=== PATIENT | male | born 1965 | race Caucasian/White ===

== ENCOUNTER 2024-09-20 15:23 | Oncology outpatient (recurring) (ONCR) | payer BC, MEDICAID, SELFPAY | END 2024-10-06 23:59 | disposition home or self-care (01) | PROVIDERS: PCP Family Medicine; Visit Provider Internal Medicine Medical Oncology | DX: C18.7 Malignant neoplasm of sigmoid colon (principal) | CPT/HCPCS: 36415 ==

== ENCOUNTER 2024-09-21 09:30 | Outpatient (CLI) | payer BC, MEDICAID, SELFPAY ==
--- NOTE | 2024-09-21 10:20 | PETR_ITS ---
PROCEDURE INFORMATION: Exam: PET/CT Skull Base to Mid-thigh Exam date and time: 09/21/2024 10:35 AM Age: 58 years old Clinical indication: Condition or disease; Primary cancer: Malignant neoplasm of colon; Prior surgery; Surgery date: <1 month; Surgery type: Colon resection; Additional info: Malignant neoplasm of colon, unspecified. LABS AND CLINICAL REPORTS: Glucose: 111 mg/dl Treatment strategy for malignancy (PET staging): Initial Staging (PI) TECHNIQUE: Imaging protocol: Following at least four-hour fasting and following the injection of radiopharmaceutical, low dose CT images were obtained. Then, PET images were obtained. Attenuation corrected images were constructed using the CT scan. Fused images of PET and CT were reviewed. The standardized uptake values (SUV) reported below are maximum values within a region of interest, expressed in gm/ml. Exam includes orbital meatal line to mid-thigh. SUV normalization method: BodyWeight Radiopharmaceutical: 11.24 mCi F-18 FDG (Fluorodeoxyglucose), IV. Time of imaging post radiopharmaceutical administration: 47 minutes Injection site: left wrist COMPARISON: No relevant prior studies available. FINDINGS: Brain: Visualized brain has normal physiologic uptake. Pharynx: No abnormal uptake. Larynx: No abnormal uptake. Lungs, pleura and trachea: No abnormal uptake. Left lower lobe calcified granuloma. Heart: Normal physiologic uptake. Mediastinal space: No abnormal uptake. Liver: Subtle focal FDG uptake at the right lobe greater than background without discrete underlying CT abnormality showing SUV max 3.4 on axial image 163. Gallbladder and biliary ducts: No abnormal uptake. Pancreas: No abnormal uptake. Spleen: No abnormal uptake. Adrenal glands: No abnormal uptake. Kidneys and ureters: Normal physiologic uptake. Stomach and bowel: Sigmoid colon resection with mild thickening and FDG uptake at the anastomosis showing SUV max 5.7. More distal uptake at the rectum without underlying CT abnormality shows SUV max 7.9 on axial image 264. Intraperitoneal and retroperitoneal spaces: Mild left abdominal mesenteric fat stranding with subtle omental hazy attenuation. No free air or significant fluid collection. Reproductive: Prostatomegaly measures 5.2 cm in transverse dimension. No suspicious abnormal uptake. Vasculature: No abnormal uptake. Mild systemic atherosclerotic calcification without aortic aneurysm. Lymph nodes: No abnormal uptake. No lymphadenopathy in the head, neck, chest, abdomen, pelvis, and extremities. Calcified left hilar nodes in keeping with sequela of old granulomatous disease. Skeleton: Degenerative changes along the spine, acromioclavicular and sacroiliac joints. Soft tissues: Ventral lower abdominal wall postsurgical stranding and low-level FDG uptake. Mild uptake adjacent to bilateral greater trochanters without underlying CT abnormality is likely inflammatory. FDG uptake at the posterior left shoulder musculature without underlying CT abnormality is likely physiologic activation or strain. METRICS: Mediastinal blood pool: SUV mean 1.9 Liver uptake: SUV mean 2.6 PET/PET skull to thigh INIT [id number] IMPRESSION: 1. Sigmoid colon resection with mild thickening and FDG uptake at the anastomosis as well as more distal rectal uptake. Findings may represent postsurgical inflammatory change, residual malignancy not excluded. 2. Mild left abdominal mesenteric fat stranding with subtle omental hazy attenuation. Findings may represent postsurgical change, neoplastic involvement difficult to entirely exclude although no associated FDG uptake. 3. Subtle focal FDG uptake at the right hepatic lobe is nonspecific, cannot rule out small metastasis. Recommend liver MRI without and with contrast. 4. Additional chronic and incidental findings as above, to include atherosclerosis and prostatomegaly.
== END 2024-09-21 09:31 | disposition home or self-care (01) ==
PROVIDERS: PCP Family Medicine; Visit Provider Family Medicine
DX: C18.9 Malignant neoplasm of colon, unspecified (principal); Z98.890 Other specified postprocedural states; R93.89 Abnormal findings on diagnostic imaging of other specified body structures; J84.10 Pulmonary fibrosis, unspecified; N40.0 Benign prostatic hyperplasia without lower urinary tract symptoms; I70.0 Atherosclerosis of aorta; R59.0 Localized enlarged lymph nodes; M47.9 Spondylosis, unspecified; M19.012 Primary osteoarthritis, left shoulder; M19.011 Primary osteoarthritis, right shoulder; M46.1 Sacroiliitis, not elsewhere classified
CPT/HCPCS: 78815; A9552

== ENCOUNTER 2024-10-24 10:22 | Day surgery (SDC) | payer BC, MEDICAID, SELFPAY ==
--- NOTE | 2024-10-24 10:41 | SC_ITS ---
WS: [id number] C-arm fluoroscopy views of port insertion, 10/24/2024 Clinical Data: Port placement Comparison: None. Findings: Dr. Wiseman inserted the right infusion catheter ending in the superior vena cava. SC/C-arm FL for CVA [id number] Impression: Insertion right infusion catheter.
[2024-10-24 11:05] VITALS: BP 132/86; PULSE 68; RESP 18; TEMP 36.5; O2SAT 97
--- NOTE | 2024-10-24 11:18 | W.PM.OPSUD ---
Surgery/Procedure H&P Update DATE OF PROCEDURE: October 24, 2024 DATE H&P PERFORMED: 10/19/24 H&P UPDATE INFORMATION: I have reviewed H&P completed within last 30 days, I have examined patient prior to procedure and No changes to prior documentation PLANNED PROCEDURE: Operation Date: 10/24/24 12:25 Proposed Procedures p Portacath Placement(Not Applicable) - Dylon Wiseman MD
--- NOTE | 2024-10-24 11:23 | ANES.PREANE2 ---
Pre-Anesthetic Assessment Height/Weight: Height 6 ft Temp Pulse Resp BP Pulse Ox O2 Del Method 97.7 F 68 18 132/86 97 Room Air 10/24/24 11:05 10/24/24 11:05 10/24/24 11:05 10/24/24 11:05 10/24/24 11:05 10/24/24 11:12 Preop Diagnosis: Colon cancer Operation Date: 10/24/24 12:25 Proposed Procedures p Portacath Placement(Not Applicable) - Dylon Wiseman MD Was Beta Taylor taken within 24 hours: N/A Was Clonidine taken within 24 hours: N/A Last intake: Intake Last Liquid Date 10/23/24 Last Liquid Time 17:00 Last Solid Date 10/23/24 Last Solid Time 19:00 Social Tobacco and No alcohol Exam alert, oriented x 3 and regular rate & rhythm Airway Submandibular: within normal limits Mallampati: Class II Comments: Comments: Very poor dentition, when asked if he had any loose teeth he replied they are all falling out Anesthetic Plan ASA status: 3 Anesthesia: MAC Other: No prior issues with anesthesia NPO since yesterday evening Colon cancer needing chemotherapy Current smoker Poor dentition, loose teeth Plan for MAC anesthesia with local via surgeon Medications/Allergies Home Medications ?Medication ?Instructions ?Recorded ?Confirmed ?Last Taken ?Type B-complex with vitamin C 1 cap PO DAILY 09/20/24 10/23/24 10/23/24 History oxycodone-acetaminophen 7.5 mg-325 1 tab PO TID PRN Pain 09/20/24 10/23/24 10/24/24 History mg tablet (Percocet) pregabalin 100 mg capsule (Lyrica) 100 mg PO BID 09/20/24 10/23/24 10/24/24 History quetiapine 400 mg tablet (Seroquel) 400 mg PO DAILY 09/20/24 10/23/24 10/23/24 History alprazolam 0.5 mg tablet (Xanax) 0.5 mg PO Q8H PRN anxiety #60 tabs 10/16/24 10/23/24 10/24/24 Rx ondansetron HCl 4 mg tablet 4 mg PO Q6H PRN nausea and 10/16/24 10/23/24 Unknown Rx vomiting #30 tabs Allergies Allergy/AdvReac Type Severity Reaction Status Date / Time No Known Allergies Allergy Verified 10/19/24 11:23 [facility] Anesthesia Social History Smoking and tobacco/nicotine status: current every day tobacco/nicotine user
[2024-10-24] MEDS: sodium chloride 0.9% 1,000 ML 30 ML IV (11:29)
[2024-10-24 11:31] VITALS: BMI 27.1
[2024-10-24] MEDS: ceFAZolin 2,000 mg SDV 2000 MG IVP (12:08)
[2024-10-24] MEDS: lidocaine-epi 1% 20 mL INJ INJECTION (12:29)
[2024-10-24] MEDS: heparin, porcine 1,000 unit/mL INJ 10 mL 10000 UNIT IRRIGATION (12:29)
[2024-10-24] MEDS: BUPivacaine 0.25% INJ 10 mL INJECTION (12:29)
[2024-10-24 12:40] VITALS: BP 130/72; PULSE 70; RESP 18; TEMP 36.4; O2SAT 96
[2024-10-24 12:45] VITALS: BP 127/85; PULSE 68; RESP 18; O2SAT 97
--- NOTE | 2024-10-24 12:45 | PM.OP ---
Operative Report Date of procedure: October 24, 2024 Pre-op diagnosis: Colon cancer Post-op diagnosis: same Post-op findings: Tip of catheter at atriocaval junction confirmed with intraoperative fluoroscopy. Procedure done: Port-A-Cath placement Implants: Port-A-Cath Specimens removed/disposition: N/A Pathology: none sent Surgeon: Dylon Wiseman MD Pigment Making Supervisor: N/A Anesthesia: MAC Estimated blood loss (mL): 10 Complications: N/A Findings: Tip of catheter at atriocaval junction confirmed with intraoperative fluoroscopy. Condition: stable Disposition: same day Brief History: 58-year-old male with colon cancer. Needs port for chemotherapy. Discussed risk and benefits and patient agreed to proceed with port placement. Procedure: Patient was brought into the operating room and a timeout was carried out. Procedure was done under MAC. Patient was placed supine with the arms tucked and in Trendelenburg. Patient was prepped and draped in the usual sterile fashion. Using ultrasound guidance the right internal jugular vein was accessed. A guidewire was then placed down to the atriocaval junction using fluoroscopy. The finder needle was removed and the guidewire was secured. I then turned my attention to creating a pocket over the right chest. Make sure to locally infiltrated using plain lidocaine and bupivacaine at the site of the pocket and throughout the tunnel site. I confirmed adequate hemostasis at the pocket. I then proceeded to place the port that was already preassembled and flushed with heparinized saline and the chest pocket. I tunneled the catheter from the chest to the neck at the site where I accessed the internal jugular vein. I measured and adjusted the length of the catheter so it would reach the atrial caval junction. At this point, I used a dilator to dilate the tract into the internal jugular vein using fluoroscopy. I removed the guidewire and proceeded to thread the central venous catheter through the introducer. In the process, I removed the sheath as a completely pushed the catheter into the internal jugular vein. I then confirmed adequate placement of the catheter by performing intraoperative interpretation of fluoroscopy. The tip of the catheter was confirmed to be placed in the atriocaval junction. There were no kinks noted throughout the trajectory of the catheter. I then proceeded to test the port and was satisfied with its functionality. I proceeded to flushed the catheter without any issues. I then hep-locked the port. Skin was closed using deep dermal 3-0 Vicryl, subcuticular 4-0 Monocryl, and Dermabond. Patient was then transferred to PACU without any complications.
[2024-10-24 12:50] VITALS: BP 137/89; PULSE 66; RESP 18; O2SAT 97
[2024-10-24 12:55] VITALS: BP 137/87; PULSE 68; RESP 18; TEMP 36.3; O2SAT 96
[2024-10-24 13:17] VITALS: RESP 17; O2SAT 96
[2024-10-24] MEDS: oxyCODONE-APAP 10-325 mg Tablet 1 TAB PO (13:17)
--- NOTE | 2024-10-24 13:43 | ANE.PACU2 ---
Inpatient post-anesthesia follow up: Airway intact: Yes Vital signs: Temperature 97.3 F Pulse Rate 68 Respiratory Rate 17 Blood Pressure 137/87 Pulse Oximetry 96 Oxygen Delivery Me thod Room Air Oxygen Flow Rate Fraction of Inspir ed Oxygen Hydration adequate: Yes Nausea and vomiting: No Pain level: 1 Mental status: Baseline
== END 2024-10-24 13:43 | disposition home or self-care (01) ==
PROVIDERS: PCP Family Medicine; Visit Provider Student in an Organized Health Care Education/Training Program
PROC: (CPT 36561; principal; 2024-10-24 12:25)
DX: C18.9 Malignant neoplasm of colon, unspecified (principal); F17.200 Nicotine dependence, unspecified, uncomplicated
CPT/HCPCS: 36561; 76000; 77001; C1788; J0690; J1644; J2704; J3010; J3490; J7030; J9999

== ENCOUNTER 2024-12-05 08:00 | Oncology outpatient (recurring) (ONCR) | payer BC, MEDICAID, SELFPAY ==
[2024-11-06 07:57] LABS: Hematocrit 42.5 % (37-53); Hemoglobin 14.40 g/dL (11.27-16.99); Mean Corpuscular HGB Conc 33.9 g/dL (30-55); Mean Corpuscular Hemoglobin 33.0 pg (27-33); Mean Corpuscular Volume 97.5 fl (82-101); Nucleated Red Blood Cells % 0 %; Platelet Count 297 10^3/cmm (157-399); Red Blood Count 4.36 10^6/uL (3.85-5.65); White Blood Count 10.86 10^3/uL (3.29-11.43)
[2024-11-06 08:23] LABS: Carcinoembryonic Antigen 2.6 ng/mL (0.0-4.7)
[2024-11-06 08:34] LABS: Alanine Aminotransferase 16 U/L (0-41); Albumin Level 4.4 g/dL (3.5-5.2); Alkaline Phosphatase 107 U/L (40-130); Anion Gap 16.9 (5-19); Aspartate Amino Transferase 15 U/L (0-40); Blood Urea Nitrogen 15 mg/dL (6-20); Calcium 9.3 mg/dL (8.5-10.5); Carbon Dioxide 23 mmol/L (22-29); Chloride 102 mmol/L (98-107); Creatinine Clr Calc Pharmacy 105.5264; Globulin 3.0 g/dL (1.3-4.6); Glucose 98 mg/dL (65-115); Osmolality Calculated 287 mOsm/kg (285-295); Potassium 3.9 mmol/L (3.5-5.1); Sodium 138 mmol/L (136-145); Total Protein 7.4 g/dL (6.6-8.7)
[2024-11-06] MEDS: dexamethasone 4 mg/mL INJ 5 mL 12 MG IVP (09:20)
[2024-11-06] MEDS: leucovorin 860 MG in dextrose 5% 250 ML 62.5 MG IV (10:03)
[2024-11-06] MEDS: oxaliplatin 182 MG in dextrose 5% 250 ML 143.2 MG IV (10:03)
[2024-11-06 12:29] VITALS: BP 117/74; PULSE 68; RESP 17; TEMP 36.4; O2SAT 97
[2024-11-06] MEDS: fluorouraciL 5,150 MG, elastomeric pump 1 PUMP in sodium chloride 0.9% (100 ml) 127 ML IV (12:32)
[2024-11-06] MEDS: fluorouraciL 50 mg/ml MDV 100 mL 850 MG IVP (12:33)
[2024-11-21 09:28] LABS: Hematocrit 37.2 % (37-53); Hemoglobin 12.70 g/dL (11.27-16.99); Mean Corpuscular HGB Conc 34.1 g/dL (30-55); Mean Corpuscular Hemoglobin 32.6 pg (27-33); Mean Corpuscular Volume 95.6 fl (82-101); Nucleated Red Blood Cells % 0 %; Platelet Count 331 10^3/cmm (157-399); Red Blood Count 3.89 10^6/uL (3.85-5.65); White Blood Count 4.99 10^3/uL (3.29-11.43)
[2024-11-21 09:41] LABS: Alanine Aminotransferase 24 U/L (0-41); Albumin Level 3.7 g/dL (3.5-5.2); Alkaline Phosphatase 89 U/L (40-130); Anion Gap 17.2 (5-19); Aspartate Amino Transferase 15 U/L (0-40); Blood Urea Nitrogen 14 mg/dL (6-20); Calcium 9.1 mg/dL (8.5-10.5); Carbon Dioxide 24 mmol/L (22-29); Chloride 103 mmol/L (98-107); Creatinine Clr Calc Pharmacy 134.2008; Globulin 3.3 g/dL (1.3-4.6); Glucose 95 mg/dL (65-115); Osmolality Calculated 290 mOsm/kg (285-295); Potassium 4.2 mmol/L (3.5-5.1); Sodium 140 mmol/L (136-145); Total Protein 7.0 g/dL (6.6-8.7)
[2024-11-21] MEDS: dexamethasone 4 mg/mL INJ 5 mL 12 MG IVP (11:59)
[2024-11-21] MEDS: aprepitant 130 mg/18 ml SDV IVP (12:09)
[2024-11-21] MEDS: leucovorin 850 MG in dextrose 5% 250 ML 62.5 MG IV (12:46)
[2024-11-21] MEDS: fluorouraciL 5,100 MG, elastomeric pump 1 PUMP in sodium chloride 0.9% (100 ml) 128 ML IV (15:10)
[2024-11-21] MEDS: fluorouraciL 50 mg/ml MDV 100 mL 850 MG IVP (15:10)
[2024-11-21 16:01] VITALS: BP 120/74; PULSE 68; TEMP 36.4; O2SAT 93
[2024-12-05 08:23] LABS: Hematocrit 41.3 % (37-53); Hemoglobin 13.90 g/dL (11.27-16.99); Mean Corpuscular HGB Conc 33.7 g/dL (30-55); Mean Corpuscular Hemoglobin 32.3 pg (27-33); Mean Corpuscular Volume 96.0 fl (82-101); Nucleated Red Blood Cells % 0 %; Platelet Count 193 10^3/cmm (157-399); Red Blood Count 4.30 10^6/uL (3.85-5.65); White Blood Count 5.77 10^3/uL (3.29-11.43)
[2024-12-05 08:39] LABS: Alanine Aminotransferase 18 U/L (0-41); Albumin Level 4.1 g/dL (3.5-5.2); Alkaline Phosphatase 122 U/L (40-130); Anion Gap 16.1 (5-19); Aspartate Amino Transferase 16 U/L (0-40); Blood Urea Nitrogen 16 mg/dL (6-20); Calcium 9.2 mg/dL (8.5-10.5); Carbon Dioxide 24 mmol/L (22-29); Chloride 104 mmol/L (98-107); Creatinine Clr Calc Pharmacy 117.4257; Globulin 3.0 g/dL (1.3-4.6); Glucose 113 mg/dL (65-115); Osmolality Calculated 292 mOsm/kg (285-295); Potassium 4.1 mmol/L (3.5-5.1); Sodium 140 mmol/L (136-145); Total Protein 7.1 g/dL (6.6-8.7)
[2024-12-05] MEDS: dexamethasone 4 mg/mL INJ 5 mL 12 MG IVP (10:35)
[2024-12-05] MEDS: aprepitant 130 mg/18 ml SDV IVP (10:43)
[2024-12-05] MEDS: leucovorin 850 MG in dextrose 5% 250 ML 62.5 MG IV (11:40)
[2024-12-05] MEDS: oxaliplatin 182 MG in dextrose 5% 250 ML 143.2 MG IV (11:41)
[2024-12-05] MEDS: fluorouraciL 5,100 MG, elastomeric pump 1 PUMP in sodium chloride 0.9% (100 ml) 128 ML IV (14:05)
[2024-12-05] MEDS: fluorouraciL 50 mg/ml MDV 100 mL 850 MG IVP (14:05)
== END 2024-12-06 23:59 | disposition home or self-care (01) ==
PROVIDERS: PCP Family Medicine; Visit Provider Nurse Practitioner Family
DX: Z53.9 Procedure and treatment not carried out, unspecified reason; Z51.11 Encounter for antineoplastic chemotherapy; C18.7 Malignant neoplasm of sigmoid colon; Z79.631 Long term (current) use of antimetabolite agent; Z79.899 Other long term (current) drug therapy; Z79.52 Long term (current) use of systemic steroids
CPT/HCPCS: 36591; 80053; 82378; 85025; 96368; 96375; 96409; 96411; 96413; 96415; 96416; 96523; J0185; J0640; J1100; J2469; J7060; J9190; J9263

== ENCOUNTER 2025-01-03 09:15 | Oncology outpatient (recurring) (ONCR) | payer BC, MEDICAID, SELFPAY ==
[2024-12-18 08:04] LABS: Hematocrit 41.2 % (37-53); Hemoglobin 14.20 g/dL (11.27-16.99); Mean Corpuscular HGB Conc 34.5 g/dL (30-55); Mean Corpuscular Hemoglobin 32.7 pg (27-33); Mean Corpuscular Volume 94.9 fl (82-101); Nucleated Red Blood Cells % 0 %; Platelet Count 156 10^3/cmm (157-399); Red Blood Count 4.34 10^6/uL (3.85-5.65); White Blood Count 4.54 10^3/uL (3.29-11.43)
[2024-12-18 08:20] LABS: Alanine Aminotransferase 47 U/L (0-41); Albumin Level 4.1 g/dL (3.5-5.2); Alkaline Phosphatase 110 U/L (40-130); Anion Gap 13.9 (5-19); Aspartate Amino Transferase 46 U/L (0-40); Blood Urea Nitrogen 9 mg/dL (6-20); Calcium 9.3 mg/dL (8.5-10.5); Carbon Dioxide 24 mmol/L (22-29); Chloride 104 mmol/L (98-107); Creatinine Clr Calc Pharmacy 133.7310; Globulin 3.0 g/dL (1.3-4.6); Glucose 142 mg/dL (65-115); Osmolality Calculated 287 mOsm/kg (285-295); Potassium 3.9 mmol/L (3.5-5.1); Sodium 138 mmol/L (136-145); Total Protein 7.1 g/dL (6.6-8.7)
[2024-12-18] MEDS: aprepitant 130 mg/18 ml SDV IVP (08:58)
[2024-12-18] MEDS: dexamethasone 4 mg/mL INJ 5 mL 12 MG IVP (08:59)
[2024-12-18] MEDS: leucovorin 860 MG in dextrose 5% 250 ML 62.5 MG IV (09:51)
[2024-12-18] MEDS: oxaliplatin 182 MG in dextrose 5% 250 ML 143.2 MG IV (09:51)
[2024-12-18 12:23] VITALS: BP 108/72; PULSE 67; RESP 16; TEMP 36.6; O2SAT 94
[2024-12-18] MEDS: fluorouraciL 50 mg/ml MDV 100 mL 850 MG IVP (12:25)
[2024-12-18] MEDS: fluorouraciL 5,150 MG, elastomeric pump 1 PUMP in sodium chloride 0.9% (100 ml) 127 ML IV (12:27)
[2024-12-20 09:21] VITALS: BP 123/76; PULSE 69; RESP 18; O2SAT 98
[2025-01-01 08:15] LABS: Hematocrit 40.0 % (37-53); Hemoglobin 14.00 g/dL (11.27-16.99); Mean Corpuscular HGB Conc 35.0 g/dL (30-55); Mean Corpuscular Hemoglobin 33.3 pg (27-33); Mean Corpuscular Volume 95.0 fl (82-101); Nucleated Red Blood Cells % 0 %; Platelet Count 142 10^3/cmm (157-399); Red Blood Count 4.21 10^6/uL (3.85-5.65); White Blood Count 5.34 10^3/uL (3.29-11.43)
[2025-01-01 08:39] LABS: Carcinoembryonic Antigen 3.8 ng/mL (0.0-4.7)
[2025-01-01 08:50] LABS: Alanine Aminotransferase 22 U/L (0-41); Albumin Level 4.2 g/dL (3.5-5.2); Alkaline Phosphatase 115 U/L (40-130); Anion Gap 14.3 (5-19); Aspartate Amino Transferase 23 U/L (0-40); Blood Urea Nitrogen 8 mg/dL (6-20); Calcium 9.0 mg/dL (8.5-10.5); Carbon Dioxide 23 mmol/L (22-29); Chloride 106 mmol/L (98-107); Creatinine Clr Calc Pharmacy 134.3141; Globulin 2.9 g/dL (1.3-4.6); Glucose 106 mg/dL (65-115); Osmolality Calculated 287 mOsm/kg (285-295); Potassium 4.3 mmol/L (3.5-5.1); Sodium 139 mmol/L (136-145); Total Protein 7.1 g/dL (6.6-8.7)
[2025-01-01] MEDS: dexamethasone 4 mg/mL INJ 5 mL 12 MG IVP (10:06)
[2025-01-01] MEDS: leucovorin 860 MG in dextrose 5% 250 ML 62.5 MG IV (10:57)
[2025-01-01] MEDS: oxaliplatin 182 MG in dextrose 5% 250 ML 143.2 MG IV (10:59)
[2025-01-01] MEDS: fluorouraciL 5,150 MG, elastomeric pump 1 PUMP in sodium chloride 0.9% (100 ml) 127 ML IV (13:11)
[2025-01-01] MEDS: fluorouraciL 50 mg/ml MDV 100 mL 850 MG IVP (13:11)
[2025-01-03 09:35] VITALS: BP 93/61; PULSE 89; RESP 17; TEMP 36.4; O2SAT 97
== END 2025-01-06 23:59 | disposition home or self-care (01) ==
PROVIDERS: Internal Medicine; Internal Medicine Medical Oncology; PCP Family Medicine; Visit Provider Nurse Practitioner Family
DX: Z53.9 Procedure and treatment not carried out, unspecified reason
CPT/HCPCS: 80053; 82378; 85025; 96368; 96375; 96411; 96413; 96415; 96416; 96417; 96523; J0185; J0640; J1100; J2469; J7060; J9190; J9263; Q0164

== ENCOUNTER 2025-01-31 09:45 | Oncology outpatient (recurring) (ONCR) | payer BC, MEDICAID, SELFPAY ==
[2025-01-15 08:17] LABS: Hematocrit 37.8 % (37-53); Hemoglobin 13.00 g/dL (11.27-16.99); Mean Corpuscular HGB Conc 34.4 g/dL (30-55); Mean Corpuscular Hemoglobin 33.0 pg (27-33); Mean Corpuscular Volume 95.9 fl (82-101); Nucleated Red Blood Cells % 0 %; Platelet Count 160 10^3/cmm (157-399); Red Blood Count 3.94 10^6/uL (3.85-5.65); White Blood Count 7.48 10^3/uL (3.29-11.43)
[2025-01-15 08:36] LABS: Alanine Aminotransferase 13 U/L (0-41); Albumin Level 3.9 g/dL (3.5-5.2); Alkaline Phosphatase 105 U/L (40-130); Anion Gap 11.2 (5-19); Aspartate Amino Transferase 16 U/L (0-40); Blood Urea Nitrogen 7 mg/dL (6-20); Calcium 8.9 mg/dL (8.5-10.5); Carbon Dioxide 25 mmol/L (22-29); Chloride 110 mmol/L (98-107); Globulin 2.7 g/dL (1.3-4.6); Glucose 115 mg/dL (65-115); Osmolality Calculated 293 mOsm/kg (285-295); Potassium 4.2 mmol/L (3.5-5.1); Sodium 142 mmol/L (136-145); Total Protein 6.6 g/dL (6.6-8.7)
[2025-01-15] MEDS: dexamethasone 4 mg/mL INJ 5 mL 12 MG IVP (10:02)
[2025-01-15] MEDS: leucovorin 860 MG in dextrose 5% 250 ML 62.5 MG IV (11:28)
[2025-01-15] MEDS: oxaliplatin 182 MG in dextrose 5% 250 ML 143.2 MG IV (11:29)
[2025-01-15] MEDS: fluorouraciL 50 mg/ml MDV 100 mL 850 MG IVP (13:46)
[2025-01-15] MEDS: fluorouraciL 5,150 MG, elastomeric pump 1 PUMP in sodium chloride 0.9% (100 ml) 127 ML IV (13:46)
[2025-01-15 13:59] VITALS: BP 139/91; PULSE 89; RESP 18; TEMP 36.6; O2SAT 98
[2025-01-29 08:37] LABS: Hematocrit 36.8 % (37-53); Hemoglobin 12.60 g/dL (11.27-16.99); Mean Corpuscular HGB Conc 34.2 g/dL (30-55); Mean Corpuscular Hemoglobin 33.4 pg (27-33); Mean Corpuscular Volume 97.6 fl (82-101); Platelet Count 151 10^3/cmm (157-399); Red Blood Count 3.77 10^6/uL (3.85-5.65); White Blood Count 4.55 10^3/uL (3.29-11.43)
[2025-01-29 08:52] LABS: Alanine Aminotransferase 21 U/L (0-41); Albumin Level 4.0 g/dL (3.5-5.2); Alkaline Phosphatase 112 U/L (40-130); Aspartate Amino Transferase 23 U/L (0-40); Blood Urea Nitrogen 8 mg/dL (6-20); Calcium 8.8 mg/dL (8.5-10.5); Carbon Dioxide 23 mmol/L (22-29); Chloride 107 mmol/L (98-107); Creatinine Clr Calc Pharmacy 157.1460; Globulin 2.9 g/dL (1.3-4.6); Glucose 104 mg/dL (65-115); Osmolality Calculated 291 mOsm/kg (285-295); Sodium 141 mmol/L (136-145); Total Protein 6.9 g/dL (6.6-8.7)
[2025-01-29 08:56] LABS: Anion Gap 15.1 (5-19); Potassium 4.1 mmol/L (3.5-5.1)
[2025-01-29 09:24] LABS: Absolute Segmented Neutrophil 1.5 10/cmm (1.6-7.1); Band Neutrophils Absolute 0.2 10^3/cmm (0.0-1.2); Slide Review Slide Review Perform; Total Cells Counted 100 (0-100)
[2025-01-29 09:25] LABS: Atypical Lymphs 17.0 % (0-5)
[2025-01-29 09:59] LABS: Magnesium 2.2 mg/dL (1.7-2.3)
[2025-01-29] MEDS: dexamethasone 4 mg/mL INJ 5 mL 12 MG IVP (10:28)
[2025-01-29] MEDS: oxaliplatin 182 MG in dextrose 5% 250 ML 143.2 MG IV (11:52)
[2025-01-29] MEDS: leucovorin 860 MG in dextrose 5% 250 ML 62.5 MG IV (11:52)
[2025-01-29] MEDS: fluorouraciL 5,150 MG, elastomeric pump 1 PUMP in sodium chloride 0.9% (100 ml) 127 ML IV (14:06)
[2025-01-29] MEDS: fluorouraciL 50 mg/ml MDV 100 mL 850 MG IVP (14:06)
[2025-01-29 14:25] VITALS: BP 181/98; PULSE 61; TEMP 36.5; O2SAT 96
== END 2025-02-05 23:59 | disposition home or self-care (01) ==
PROVIDERS: Internal Medicine Medical Oncology; Nurse Practitioner; PCP Family Medicine; Visit Provider Nurse Practitioner Family
DX: Z45.1 Encounter for adjustment and management of infusion pump; Z95.828 Presence of other vascular implants and grafts; Z53.9 Procedure and treatment not carried out, unspecified reason
CPT/HCPCS: 80053; 83735; 85007; 85025; 96367; 96368; 96375; 96411; 96413; 96415; 96416; 96417; 96523; J0640; J1100; J1453; J2469; J7060; J9190; J9263; J9999

== ENCOUNTER 2025-02-28 09:00 | Oncology outpatient (recurring) (ONCR) | payer BC, MEDICAID, SELFPAY ==
[2025-02-12 09:25] LABS: Hematocrit 36.7 % (37-53); Hemoglobin 12.80 g/dL (11.27-16.99); Mean Corpuscular HGB Conc 34.9 g/dL (30-55); Mean Corpuscular Hemoglobin 34.6 pg (27-33); Mean Corpuscular Volume 99.2 fl (82-101); Nucleated Red Blood Cells % 0 %; Platelet Count 153 10^3/cmm (157-399); Red Blood Count 3.70 10^6/uL (3.85-5.65); White Blood Count 3.72 10^3/uL (3.29-11.43)
[2025-02-12 09:45] LABS: Alanine Aminotransferase 25 U/L (0-41); Albumin Level 4.4 g/dL (3.5-5.2); Alkaline Phosphatase 109 U/L (40-130); Anion Gap 17.4 (5-19); Aspartate Amino Transferase 27 U/L (0-40); Blood Urea Nitrogen 7 mg/dL (6-20); Calcium 8.9 mg/dL (8.5-10.5); Carbon Dioxide 22 mmol/L (22-29); Chloride 102 mmol/L (98-107); Globulin 3.0 g/dL (1.3-4.6); Glucose 124 mg/dL (65-115); Osmolality Calculated 283 mOsm/kg (285-295); Potassium 4.4 mmol/L (3.5-5.1); Sodium 137 mmol/L (136-145); Total Protein 7.4 g/dL (6.6-8.7)
[2025-02-12 10:29] VITALS: BP 116/80; PULSE 64; RESP 16; TEMP 36.5; O2SAT 98
[2025-02-12] MEDS: dexamethasone 4 mg/mL INJ 5 mL 12 MG IVP (10:48)
[2025-02-12] MEDS: leucovorin 850 MG in dextrose 5% 250 ML 83.75 MG IV (12:39)
[2025-02-12] MEDS: oxaliplatin 182 MG in dextrose 5% 250 ML 143.2 MG IV (12:39)
[2025-02-12 14:40] VITALS: BP 126/77; PULSE 76; RESP 17; TEMP 36.2; O2SAT 98
[2025-02-12] MEDS: fluorouraciL 50 mg/ml MDV 100 mL 850 MG IVP (14:45)
[2025-02-12] MEDS: fluorouraciL 5,100 MG, elastomeric pump 1 PUMP in sodium chloride 0.9% (100 ml) 128 ML IV (14:46)
[2025-02-14 09:12] VITALS: BP 125/78; PULSE 68; O2SAT 97
[2025-02-26 09:00] LABS: Hematocrit 35.8 % (37-53); Hemoglobin 12.20 g/dL (11.27-16.99); Mean Corpuscular HGB Conc 34.1 g/dL (30-55); Mean Corpuscular Hemoglobin 34.4 pg (27-33); Mean Corpuscular Volume 100.8 fl (82-101); Nucleated Red Blood Cells % 0 %; Platelet Count 175 10^3/cmm (157-399); Red Blood Count 3.55 10^6/uL (3.85-5.65); White Blood Count 4.14 10^3/uL (3.29-11.43)
[2025-02-26 09:15] LABS: Alanine Aminotransferase 16 U/L (0-41); Albumin Level 4.0 g/dL (3.5-5.2); Alkaline Phosphatase 97 U/L (40-130); Anion Gap 13.1 (5-19); Aspartate Amino Transferase 19 U/L (0-40); Blood Urea Nitrogen 4 mg/dL (6-20); Calcium 8.7 mg/dL (8.5-10.5); Carbon Dioxide 23 mmol/L (22-29); Chloride 109 mmol/L (98-107); Creatinine Clr Calc Pharmacy 117.0146; Globulin 3.2 g/dL (1.3-4.6); Glucose 125 mg/dL (65-115); Osmolality Calculated 290 mOsm/kg (285-295); Potassium 4.1 mmol/L (3.5-5.1); Sodium 141 mmol/L (136-145); Total Protein 7.2 g/dL (6.6-8.7)
[2025-02-26 09:40] LABS: Slide Review Slide Review Perform
[2025-02-26 09:50] VITALS: BP 113/77; PULSE 72; RESP 18; TEMP 37.2; O2SAT 95
[2025-02-26] MEDS: dexamethasone 4 mg/mL INJ 5 mL 12 MG IVP (10:22)
[2025-02-26] MEDS: leucovorin 860 MG in dextrose 5% 250 ML 84 MG IV (11:54)
[2025-02-26] MEDS: oxaliplatin 182 MG in dextrose 5% 250 ML 143.2 MG IV (11:54)
[2025-02-26] MEDS: fluorouraciL 5,150 MG, elastomeric pump 1 PUMP in sodium chloride 0.9% (100 ml) 127 ML IV (15:13)
[2025-02-26] MEDS: fluorouraciL 50 mg/ml MDV 100 mL 850 MG IVP (15:13)
[2025-02-26 15:54] VITALS: BP 109/78; PULSE 78; RESP 17; TEMP 36.2; O2SAT 98
== END 2025-03-08 23:59 | disposition home or self-care (01) ==
PROVIDERS: Nurse Practitioner; PCP Family Medicine; Visit Provider Nurse Practitioner Family
DX: Z45.1 Encounter for adjustment and management of infusion pump; Z95.828 Presence of other vascular implants and grafts; Z53.9 Procedure and treatment not carried out, unspecified reason
CPT/HCPCS: 80053; 85025; 96367; 96375; 96409; 96411; 96413; 96415; 96416; 96417; 96523; J0640; J1100; J1453; J2469; J7060; J9190; J9263

== ENCOUNTER 2025-04-30 13:30 | Oncology outpatient (recurring) (ONCR) | payer BC, MEDICAID, SELFPAY ==
[2025-04-09 10:25] LABS: Hematocrit 41.9 % (37-53); Hemoglobin 14.50 g/dL (11.27-16.99); Mean Corpuscular HGB Conc 34.6 g/dL (30-55); Mean Corpuscular Hemoglobin 35.7 pg (27-33); Mean Corpuscular Volume 103.2 fl (82-101); Nucleated Red Blood Cells % 0 %; Platelet Count 290 10^3/cmm (157-399); Red Blood Count 4.06 10^6/uL (3.85-5.65); White Blood Count 6.71 10^3/uL (3.29-11.43)
[2025-04-09 10:58] LABS: Carcinoembryonic Antigen 2.7 ng/mL (0.0-4.7)
[2025-04-09 11:09] LABS: Alanine Aminotransferase 10 U/L (0-41); Albumin Level 4.6 g/dL (3.5-5.2); Alkaline Phosphatase 97 U/L (40-130); Anion Gap 17.8 (5-19); Aspartate Amino Transferase 13 U/L (0-40); Blood Urea Nitrogen 11 mg/dL (6-20); Calcium 9.5 mg/dL (8.5-10.5); Carbon Dioxide 24 mmol/L (22-29); Chloride 105 mmol/L (98-107); Creatinine Clr Calc Pharmacy 152.6175; Globulin 3.1 g/dL (1.3-4.6); Glucose 91 mg/dL (65-115); Osmolality Calculated 295 mOsm/kg (285-295); Potassium 3.8 mmol/L (3.5-5.1); Sodium 143 mmol/L (136-145); Total Protein 7.7 g/dL (6.6-8.7)
--- NOTE | 2025-04-18 13:30 | CT_ITS ---
WS: [id number] CT CHEST, ABDOMEN AND PELVIS WITH CONTRAST HISTORY: Restaging colon cancer. History of sigmoid colon resection. TECHNIQUE: Contiguous 5 mm axial imaging performed through the chest, abdomen and pelvis with IV contrast, oral contrast has been provided. Coronal and sagittal reformats chest. Coronal and sagittal reformats through the abdomen and pelvis. All CT scans at [facility] use at least one of these dose optimization techniques: automated exposure control; mA and/or kV adjustment per patient size (includes targeted exams where dose is matched to clinical indication); or iterative reconstruction. CONTRAST: Omnipaque 350; 100 mL IV. DLP: 970.36 mGy.cm COMPARISON: PET/CT 09/21/[address]: Mild pulmonary hyperexpansion. No metastatic disease identified. No pneumonia. Benign granuloma LEFT lower lobe. No mass or pneumonia. No pericardial or pleural effusions. RIGHT jugular Mediport. There is a soft tissue filling defect surrounding the Mediport catheter through the RIGHT innominate vein. Filling defect extends over a length of 1.5 cm highly suspicious for a nonobstructive thrombus. No mediastinal or hilar pathologically enlarged nodes. There are small lymph nodes in the mediastinum and hilum. Heart size is normal. Small hiatal hernia. Normal size aorta and pulmonary artery. Mild gynecomastia. Small hiatal hernia. Abdomen CT: Normal liver and spleen. No metastatic disease. Normal portal vein. Normal gallbladder. Normal RIGHT adrenal gland. 8 mm LEFT adrenal nodule negative on prior PET/CT. Normal aorta. No aneurysm. No renal obstruction. Cortical hypodensities within the RIGHT kidney are probably small cysts. These were negative on prior PET/CT. The largest is 9 mm in the posterior mid kidney. No ascites. No adenopathy. Normally distended stomach and small bowel. No GI tract obstruction. Normal appendix. Prior partial sigmoidectomy. Anastomotic sutures are intact. There is no adjacent mass. No ascites or pericolonic inflammation. Pelvic CT: No free fluid in the pelvis. No adenopathy in the pelvis. Small benign inguinal lymph nodes. No sclerotic or lytic bone lesions. CT/CT chest abdpel w/*[id number] IMPRESSION: 1. Status post partial sigmoidectomy. Sigmoid anastomotic sutures appear intac t with no adjacent inflammation or mass. 2. No pulmonary nodules or metastatic disease. 3. Nonocclusive short segment soft tissue along the RIGHT Mediport in the inno minate vein. Nonocclusive thrombus extends over a length of 1.5 cm. 4. No metastatic disease to the liver. 5. LEFT adrenal nodule 8 mm. Negative on prior PET/CT. 6. No ascites or adenopathy in the abdomen or pelvis. 7. No prior imaging studies for comparison to evaluate for interval change oth er than the PET/CT of 09/21/2024.
[2025-04-30 13:30] LABS: Hematocrit 42.2 % (37-53); Hemoglobin 14.10 g/dL (11.27-16.99); Mean Corpuscular HGB Conc 33.4 g/dL (30-55); Mean Corpuscular Hemoglobin 35.1 pg (27-33); Mean Corpuscular Volume 105.0 fl (82-101); Nucleated Red Blood Cells % 0 %; Platelet Count 253 10^3/cmm (157-399); Red Blood Count 4.02 10^6/uL (3.85-5.65); White Blood Count 8.30 10^3/uL (3.29-11.43)
[2025-04-30 13:43] LABS: Alanine Aminotransferase 15 U/L (0-41); Albumin Level 4.4 g/dL (3.5-5.2); Alkaline Phosphatase 98 U/L (40-130); Anion Gap 13.7 (5-19); Aspartate Amino Transferase 22 U/L (0-40); Blood Urea Nitrogen 8 mg/dL (6-20); Calcium 9.3 mg/dL (8.5-10.5); Carbon Dioxide 27 mmol/L (22-29); Chloride 103 mmol/L (98-107); Globulin 2.4 g/dL (1.3-4.6); Glucose 92 mg/dL (65-115); Osmolality Calculated 288 mOsm/kg (285-295); Potassium 3.7 mmol/L (3.5-5.1); Sodium 140 mmol/L (136-145); Total Protein 6.8 g/dL (6.6-8.7)
== END 2025-05-08 23:59 | disposition home or self-care (01) ==
PROVIDERS: Internal Medicine Medical Oncology; PCP Family Medicine; Visit Provider Nurse Practitioner Family
DX: Z53.9 Procedure and treatment not carried out, unspecified reason; C18.7 Malignant neoplasm of sigmoid colon
CPT/HCPCS: 36591; 71260; 74177; 80053; 82378; 85025; 96523